=== PATIENT | male | born 1930 | race Caucasian/White ===

== ENCOUNTER 2021-04-21 15:58 | Emergency (ER) | payer OTHER ==
[~2021-04-21] VITALS: Ht 172.7 cm; Wt 68.0 kg
[2021-04-21 16:08] VITALS: BP_SYST 105
--- NOTE | 2021-04-21 16:08 | NUR ---
Patient triaged and placed in bed 4. VSS and patient appears in no acute distress at this time. MD notified of need for MSE.
--- NOTE | 2021-04-21 16:08 | NUR ---
Pt came into ER with complaint of dizziness Xtoday in the morning. Pt denies any dizziness at this time pt denies pain or SOB. Pt is AAOX4 speaking full sentences. VSS resting in gurney attached to monitor with side rails up.
--- NOTE | 2021-04-21 16:14 | NUR ---
Placed in room 4 . Placed on ekg monitor tech, blood pressure machine and pulse oximeter. To gown for exam. Side rails up.
--- NOTE | 2021-04-21 16:45 | NUR ---
# 20 gauge angiocath placed to LAC. Use of asceptic technique. Opsite placed over site. Blood return noted. Blood for lab drawn from site. Flushed with 10 cc of normal saline. No evidence of infiltration noted. Patient tolerated well.
--- NOTE | 2021-04-21 17:00 | NUR ---
Pt ambulated to restroom independently for urine specimen.
--- NOTE | 2021-04-21 17:07 | NUR ---
Lab ta bedside.
--- NOTE | 2021-04-21 17:14 | NUR ---
ER at bedside examining patient.
[2021-04-21 17:47] LABS: ANION GAP 5 (5-15); CALCIUM 8.8 mg/dL (8.4-11.0); CHLORIDE 109 mmol/L (98-107); CREATININE 1.16 mg/dL (0.55-1.30); GLUCOSE 92 mg/dL (70-99); POTASSIUM 3.6 mmol/L (3.5-5.1); SODIUM SERUM 143 mmol/L (136-145); UREA NITROGEN, BLOOD 18 mg/dL (8-21)
[2021-04-21 17:54] LABS: ALANINE AMINOTRANSFERASE 22 U/L (12-78); ALBUMIN 2.7 g/dL (3.4-4.8); ASPARTATE AMINOTRANSFERASE 26 U/L (10-37); TOTAL BILIRUBIN 0.5 mg/dL (0.0-1.0)
[2021-04-21 18:01] LABS: BASOPHILS % (AUTO) 0.7 % (0.0-2.0); EOSINOPHILS # (AUTO) 0.1 K/uL (0.0-0.4); EOSINOPHILS % (AUTO) 1.4 % (0.0-4.0); HEMATOCRIT 37.9 % (36-54); HEMOGLOBIN 12.8 g/dL (14.0-18.0); LYMPHOCYTES # (AUTO) 0.9 K/uL (1.0-5.5); LYMPHOCYTES % (AUTO) 15.7 % (20.5-51.5); MEAN CORPUSCULAR HEMOGLOBIN 32 pg (27-31); MEAN CORPUSCULAR HGB CONC 34 % (32-36); MEAN CORPUSCULAR VOLUME 94 fL (79.0-98.0); MONOCYTES % (AUTO) 17.3 % (1.7-9.3); NEUTROPHILS # (AUTO) 3.9 K/uL (1.8-7.7); NEUTROPHILS % (AUTO) 64.9 % (40.0-70.0); PLATELET COUNT (AUTO) 277 K/uL (130-430); RED BLOOD CELL COUNT(AUTO) 4.02 MIL/uL (4.2-6.2); RED CELL DISTRIBUTION WIDTH 13.5 % (9.0-15.0); WHITE BLOOD COUNT (AUTO) 5.9 K/uL (4.8-10.8)
--- NOTE | 2021-04-21 18:32 | NUR ---
Pt resting in [facility] VSS no distress noted at this time.
[2021-04-21 19:19] VITALS: BP_SYST 121
== END 2021-04-21 19:19 | disposition home or self-care (01) ==
LOC: SED 15:58
DX: R42 Dizziness and giddiness (principal); I48.91 Unspecified atrial fibrillation
CPT/HCPCS: 36415; 80053; 81002; 82550; 84484; 85025; 93005; 99284